=== PATIENT | female | born 1980 | race Caucasian/White ===

== ENCOUNTER 2017-01-23 15:51 | Inpatient (IN) | payer BC ==
[~2017-01-23] VITALS: Ht 165.1 cm; Wt 59.2 kg
[2017-01-23] MEDS ORDERED: ESSENTIAL WOMA1 EAC1 PO (17:07)
[2017-01-23] MEDS ORDERED: DEPO ESTRADIO5 MG/ML IM (17:07)
[2017-01-23 17:48] LABS: HEMATOCRIT 41.3 % (36.0-46.0); MCH 30.8 PG (29.0-34.0); MCHC 32.9 G/DL (30.0-36.0); MCV 93.7 FL (83-99); MEAN PLAT.VOLUME 9.7 uM^3 (9.5-12.4); PLATELET COUNT 205 K/uL (156-360); RBC DIS.WIDTH-CV 12.1 % (11.8-14.6); RED BLOOD COUNT 4.41 M/uL (3.80-5.20); WHITE BLOOD COUNT 5.2 K/uL (4.1-10.2)
[2017-01-23 18:10] LABS: CHLORIDE 108 mEq/L (99-109); SODIUM 140 mEq/L (136-147)
[2017-01-23 18:12] LABS: GLUCOSE 90 mg/dL (70-99)
[2017-01-23 18:13] LABS: ANION GAP 8 MEQ/L (2-14)
[2017-01-23 18:16] LABS: GFR ESTIMATE (CALCULATED) > 59 mL/min/
[2017-01-23 18:17] LABS: UREA NITROGEN (BUN) 11 mg/dL (9-23)
[2017-01-23 18:25] LABS: QUANTITATIVE HCG < 4.0 MIU/ML
[2017-01-23 20:40] LABS: PROTHROMBIN TIME 11.9 SEC (10.2-12.9)
[2017-01-23 20:42] LABS: PTT 31.2 SEC (25-37)
[2017-01-23] MEDS ORDERED: MEDROXYPRO150 MG/1 M IM (21:11)
[2017-01-23] MEDS ORDERED: CLINDAMYCIN PHO60 M1 TP (21:13)
[2017-01-23] MEDS ORDERED: VITAMIN C1000 MG PO (21:15)
[2017-01-23] MEDS ORDERED: CALCIUM 600 +1 EAC2 PO (21:16)
[2017-01-23] MEDS ORDERED: CLARITIN,ALAVAR10 MG PO (21:17)
[2017-01-23] MEDS ORDERED: BIOTIN10000 MC1 PO (21:17)
[2017-01-23] MEDS ORDERED: VITAMIN B125000 MCG PO (21:19)
[2017-01-23 23:20] VITALS: BP 118/77
[2017-01-23 23:31] VITALS: BP 118/77
[2017-01-24] VITALS (21 sets, daily range): BP systolic 95–133; BP diastolic 57–88
[2017-01-24 00:35] LABS: METH RESISTANT S AUREUS PCR NEGATIVE (NEGATIVE)
[2017-01-24 00:40] LABS: PROBE CHECK PASS; SPECIMEN PROCESSING CONTROL PASS
[2017-01-24 02:23] LABS: HDL CHOLESTEROL 68 MG/DL (Desirable>=50); LDL CHOLESTEROL 81 mg/dL (Desirable<100); NON-HDL CHOLESTEROL 94 mg/dL (Desirable<160); TOTAL CHOLESTEROL 162 mg/dL (Desirable<200); TRIGLYCERIDES 65 MG/DL (Normal: <150)
[2017-01-24 04:23] LABS: EOSINOPHIL (%) 6.7 % (0-5); EOSINOPHIL COUNT 0.3 K/uL (0-0.3); HEMATOCRIT 37.8 % (36.0-46.0); INSTRUMENT ABS NEUTROPHIL CT 1.8 K/uL; LYMPHOCYTE COUNT 2.3 K/uL (1.0-2.8); MCH 31.4 PG (29.0-34.0); MCHC 33.6 G/DL (30.0-36.0); MCV 93.3 FL (83-99); MEAN PLAT.VOLUME 9.9 uM^3 (9.5-12.4); MONOCYTE (%) 7.9 % (3-12); MONOCYTE COUNT 0.4 K/uL (0-0.8); NEUTROPHIL (%) 36.6 % (45-76); NEUTROPHIL COUNT 1.8 K/uL (1.8-6.4); PLATELET COUNT 185 K/uL (156-360); RBC DIS.WIDTH-SD 41.4 % (39-53); RED BLOOD COUNT 4.05 M/uL (3.80-5.20); WHITE BLOOD COUNT 4.8 K/uL (4.1-10.2)
[2017-01-24 04:31] LABS: CHLORIDE 109 mEq/L (99-109); POTASSIUM 3.7 mEq/L (3.7-5.4); SODIUM 140 mEq/L (136-147)
[2017-01-24 04:33] LABS: GLUCOSE 97 mg/dL (70-99)
[2017-01-24 04:34] LABS: ANION GAP 8 MEQ/L (2-14)
[2017-01-24 04:37] LABS: GFR ESTIMATE (CALCULATED) > 59 mL/min/
[2017-01-24 04:38] LABS: UREA NITROGEN (BUN) 9 mg/dL (9-23)
[2017-01-24 06:50] LABS: Estimated Average Glucose 103 mg/dL (70-123); HEMOGLOBIN A1c (GLYCOHEMOGLOB) 5.2 % HGB (Below 5.7)
[2017-01-24 10:58] LABS: INTER. NORMALIZED RATIO 1.1; PROTHROMBIN TIME 12.5 SEC (10.2-12.9)
[2017-01-24 11:12] LABS: PTT 67.7 SEC (25-37)
[2017-01-24 16:54] LABS: INTER. NORMALIZED RATIO 1.1; PROTHROMBIN TIME 12.3 SEC (10.2-12.9)
[2017-01-24 17:50] LABS: PTT 32.9 SEC (25-37)
[2017-01-25 06:34] LABS: INTER. NORMALIZED RATIO 1.2; PROTHROMBIN TIME 13.6 SEC (10.2-12.9)
[2017-01-25 06:35] LABS: MCH 31.5 PG (29.0-34.0); MCHC 33.8 G/DL (30.0-36.0); MCV 93.5 FL (83-99); MEAN PLAT.VOLUME 9.7 uM^3 (9.5-12.4); PLATELET COUNT 190 K/uL (156-360); RBC DIS.WIDTH-CV 12.2 % (11.8-14.6); RBC DIS.WIDTH-SD 41.8 % (39-53); RED BLOOD COUNT 4.28 M/uL (3.80-5.20)
[2017-01-25 06:37] LABS: PTT 94.9 SEC (25-37)
[2017-01-25 07:40] VITALS: BP 114/71
[2017-01-25 16:07] VITALS: BP 112/66
[2017-01-25 23:41] VITALS: BP 99/62
[2017-01-26 04:41] LABS: PTT 85.2 SEC (25-37)
[2017-01-26 07:43] VITALS: BP 120/73
[2017-01-26 10:48] LABS: INTER. NORMALIZED RATIO 1.2; PROTHROMBIN TIME 13.9 SEC (10.2-12.9)
[2017-01-26 16:10] VITALS: BP 116/68
[2017-01-26 23:58] VITALS: BP 107/64
[2017-01-27 06:00] LABS: HEMATOCRIT 43.7 % (36.0-46.0); MCH 30.5 PG (29.0-34.0); MCV 92.6 FL (83-99); MEAN PLAT.VOLUME 9.6 uM^3 (9.5-12.4); PLATELET COUNT 208 K/uL (156-360); RBC DIS.WIDTH-CV 11.9 % (11.8-14.6); RBC DIS.WIDTH-SD 41.1 % (39-53); RED BLOOD COUNT 4.72 M/uL (3.80-5.20); WHITE BLOOD COUNT 4.5 K/uL (4.1-10.2)
[2017-01-27 06:03] LABS: INTER. NORMALIZED RATIO 1.2; PROTHROMBIN TIME 13.6 SEC (10.2-12.9)
[2017-01-27 06:06] LABS: PTT 91.3 SEC (25-37)
[2017-01-27] MEDS ORDERED: LOVENOX60 MG/0.6 SC (07:22)
[2017-01-27] MEDS ORDERED: COUMADIN6 MG PO (07:22)
[2017-01-27 07:45] VITALS: BP 106/68
== END 2017-01-27 13:48 | disposition home or self-care (01) | DRG 301 ==
LOC: EME 15:51 → 4WEST 22:39 → EDOF 22:39 → ENRESERV 22:44 → 4WEST 23:15 → ENRESERV 01-24 17:08 → 4WEST 01-24 17:59 → 5SOUTH 01-24 19:39
PROVIDERS: Emergency Medicine; Pediatrics; Physician Assistant; Specialist
DX: I77.74 Dissection of vertebral artery (principal); H57.02 Anisocoria; G43.909 Migraine, unspecified, not intractable, without status migrainosus; W19.XXXA Unspecified fall, initial encounter; Z79.01 Long term (current) use of anticoagulants; Z79.82 Long term (current) use of aspirin
CPT/HCPCS: 70450; 70496; 70498; 70551; 80048; 80061; 83036; 83735; 84100; 84702; 85025; 85027; 85610; 85730; 87641; 99281; 99285; J2405; J3010; J7030